=== PATIENT | female | born 1955 ===

== ENCOUNTER 2023-02-16 18:13 | Inpatient (IN) ==
[2023-02-16 19:40] LABS: Calcium 9.3 mg/dL (8.6-10.3); Creatinine, Serum 0.52 mg/dL (0.51-0.95); Potassium 4.1 mmol/L (3.5-5.0); eGFR CKD-EPI 100.5 (>60)
[2023-02-16 20:36] LABS: ABS Lymphocytes 1.3 10^3/uL (1.0-4.8); ABS Monocytes 0.4 10^3/uL (0.0-0.9); ABS Nucleated RBC 0.03 10^3/ul; Eosinophil % 0.7 %; Hematocrit 41.2 % (35-45); Hemoglobin 14.9 g/dL (11.5-14.3); Lymphocyte % 27.4 %; Mean Corpuscular Hemoglobin 30.8 pg (27-33); Mean Corpuscular Hgb Conc 36.1 g/dL (31-36); Mean Corpuscular Volume 85.4 fL (80-97); Mean Platelet Volume 6.1 fL (7.5-11.2); Nucleated Red Blood Cells % 0.5 %/100WBC (0.0-0.8); Platelet Count 306 10^3/uL (150-450); Red Blood Count 4.82 10^6/uL (3.63-4.92); Red Cell Distribution Width 12.8 % (12-17); White Blood Count 4.9 10^3/uL (3.8-11.8)
[2023-02-16 21:17] LABS: Osmolality Serum 261 mOsm/kg (275-295)
[2023-02-16 21:57] LABS: Urine Osmo < 100 mOsm/kg (150-1150)
[2023-02-16 22:02] LABS: Urine Appearance Clear; Urine Bilirubin Negative (Negative); Urine Blood Negative (Negative); Urine Color Colorless; Urine Glucose Negative (Negative); Urine Ketones Trace (Negative); Urine Nitrite Negative (Negative); Urine Protein Negative (Negative); Urine Specific Gravity 1.001 (1.002-1.030); Urine Urobilinogen Negative (Negative)
[2023-02-17 05:14] LABS: ABS Basophils 0.1 10^3/uL (0.0-0.1); ABS Eosinophils 0.1 10^3/uL (0.0-0.5); ABS Lymphocytes 1.2 10^3/uL (1.0-4.8); ABS Monocytes 0.6 10^3/uL (0.0-0.9); ABS Neutrophils 2.5 10^3/uL (1.5-7.6); ABS Nucleated RBC 0.01 10^3/ul; Eosinophil % 1.5 %; Hemoglobin 13.7 g/dL (11.5-14.3); Lymphocyte % 26.9 %; Mean Corpuscular Hemoglobin 30.9 pg (27-33); Mean Corpuscular Volume 85.8 fL (80-97); Nucleated Red Blood Cells % 0.1 %/100WBC (0.0-0.8); Platelet Count 287 10^3/uL (150-450); Red Blood Count 4.43 10^6/uL (3.63-4.92); White Blood Count 4.3 10^3/uL (3.8-11.8)
[2023-02-17 05:30] LABS: Calcium 8.9 mg/dL (8.6-10.3); Creatinine, Serum 0.77 mg/dL (0.51-0.95); Magnesium 2.1 mg/dL (1.9-2.7); Potassium 4.1 mmol/L (3.5-5.0); eGFR CKD-EPI 83.5 (>60)
[2023-02-17 06:39] LABS: TSH Ultra Thyroid Stim Horm 2.25 mcIU/mL (0.34-5.60)
[2023-02-17] MEDS ORDERED: Desmopressin Acetate 2 MCG in NS 0.9% 50 ML 50 ML IVPB ONE (08:01)
[2023-02-17] MEDS ORDERED: D5W 1000 ml BAG 1,000 ML IV ONE (08:01)
[2023-02-17 13:23] LABS: Calcium 7.9 mg/dL (8.6-10.3); Creatinine, Serum 0.65 mg/dL (0.51-0.95); Potassium 3.2 mmol/L (3.5-5.0); eGFR CKD-EPI 95.2 (>60)
[2023-02-17] MEDS ORDERED: Potassium Chlor 20 meq TAB.ER PO ONE (14:05)
[2023-02-17 18:49] LABS: Calcium 8.1 mg/dL (8.6-10.3); Creatinine, Serum 0.5 mg/dL (0.51-0.95); Phosphorus 2.2 mg/dL (2.5-5.0); eGFR CKD-EPI 101.5 (>60)
[2023-02-18 05:18] LABS: ABS Basophils 0.1 10^3/uL (0.0-0.1); ABS Eosinophils 0.2 10^3/uL (0.0-0.5); ABS Lymphocytes 2.2 10^3/uL (1.0-4.8); ABS Monocytes 0.6 10^3/uL (0.0-0.9); ABS Neutrophils 2.9 10^3/uL (1.5-7.6); Hematocrit 34.6 % (35-45); Hemoglobin 12.5 g/dL (11.5-14.3); Lymphocyte % 36.9 %; Mean Corpuscular Hgb Conc 36.2 g/dL (31-36); Mean Corpuscular Volume 85.6 fL (80-97); Mean Platelet Volume 6.1 fL (7.5-11.2); Platelet Count 250 10^3/uL (150-450); Red Blood Count 4.05 10^6/uL (3.63-4.92); White Blood Count 5.9 10^3/uL (3.8-11.8)
[2023-02-18 05:34] LABS: Calcium 8.4 mg/dL (8.6-10.3); Creatinine, Serum 0.48 mg/dL (0.51-0.95); Magnesium 1.7 mg/dL (1.9-2.7); Phosphorus 3.1 mg/dL (2.5-5.0); Potassium 4.1 mmol/L (3.5-5.0); eGFR CKD-EPI 102.5 (>60)
[2023-02-18] MEDS ORDERED: Magnesium Sulfate 2 gm BAG 2 GM/50 ML BAG IVPB ONE (07:25)
[2023-02-18 12:32] LABS: Calcium 8.4 mg/dL (8.6-10.3); Creatinine, Serum 0.48 mg/dL (0.51-0.95); eGFR CKD-EPI 102.5 (>60)
[2023-02-18 14:21] VITALS: BP 135/87
== END 2023-02-18 15:20 | disposition left against medical advice (07) | DRG 641 ==
LOC: EDHOLD 18:13 → ED 18:13 → MED 02-17 18:08
PROVIDERS: ADMIT Internal Medicine; ATTEND Internal Medicine